=== PATIENT | female | born 1960 | race Hispanic/Latino ===

== ENCOUNTER 2019-08-06 07:01 | Emergency (ER) | payer BC ==
--- OUTSIDE RECORDS SUMMARY | 2019-08-06 07:03 | XMS REPORT ---
:1960 Author Organization e[employer] Care Team Providers Name Role Phone Frazier, Na Provider Role Unavailable Allergies No Known Allergies Problems Problem Type Condition Code Onset Dates Condition Status Problem Pure hypercholesterolemia E78.00 Active Problem Hemorrhoids, unspecified hemorrhoid K64.9 Active type Problem Post menopausal syndrome N95.1 Active Problem Hormone replacement therapy Z79.890 Active (postmenopausal) Problem Encounter for gynecological Z01.419 Active examination without abnormal finding Problem Encounter for screening mammogram Z12.31 Active for breast cancer Problem 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
--- NOTE | 2019-08-06 07:51 | RAD REPORT ---
EXAM DESCRIPTION: RAD - Lumbar Spine 3 Views - 08/06/2019 7:44 am CLINICAL HISTORY: Pain, left lower extremity radiculopathy COMPARISON: None. FINDINGS: A three-view lumbar spine examination was performed. Lumbar bodies are normal in height an d alignment. No fracture or acute bony process seen. No disc space narrowing. Minimal spurring change s in the endplates. Mild to moderate facet joint degenerative changes are present most notable at C3- 4. No pars defects identified. IMPRESSION: No fracture or acute finding identifiable. Prominent facet joint degenerative change.
--- NOTE | 2019-08-06 08:15 | ER ---
Nurse's Notes [facility] Name: Lexii Felipe Age: 58 yrs Sex: Female : 1960 Arrival Date: 08/06/2019 Time: 07:04 Bed 5 Private MD: Diagnosis: Radiculopathy, lumbar region;Pain in left hip Presentation: 08/06 07:12 Presenting complaint: Patient states: c/o pain from left lower back/left hip down left iw leg X 1 week, fell a month ago but no other injury. Transition of care: patient was not received from another setting of care. Onset of symptoms was July 28, 2019. Risk Assessment: Do you want to hurt yourself or someone else? Patient reports no desire to harm self or others. Initial Sepsis Screen: Does the patient meet any 2 criteria? No. Patient's initial sepsis screen is negative. Does the patient have a suspected source of infection? No. Patient's initial sepsis screen is negative. Care prior to arrival: None. 07:12 Method Of Arrival: Wheelchair iw 07:12 Acuity: [place]IX[place] 4 iw Historical: - Allergies: 07:14 PENICILLINS; iw - Home Meds: 07:14 Cymbalta oral oral [Active]; iw - PMHx: 07:14 Hyperlipidemia; iw - PSHx: 07:14 Cholecystectomy; Hysterectomy; iw - Immunization history:: Adult Immunizations not up to date. - Social history:: Smoking status: Patient/guardian denies using tobacco. - Ebola Screening: : Patient negative for fever greater than or equal to 101.5 degrees Fahrenheit, and additional compatible Ebola Virus Disease symptoms Patient denies exposure to infectious person Patient denies travel to an Ebola-affected area in the 21 days before illness onset No symptoms or risks identified at this time. Screenin:20 Abuse screen: Denies threats or abuse. Denies injuries from another. Nutritional jl7 screening: No deficits noted. Tuberculosis screening: No symptoms or risk factors identified. Fall Risk Gait- Weak (10 pts.). Total Marquez Fall Scale indicates No Risk (0-24 pts). Assessment: 07:20 General: Appears in no apparent distress. uncomfortable, Behavior is calm, cooperative, jl7 appropriate for age. Pain: Complains of pain in left hip Pain currently is 10 out of 10 on a pain scale. Neuro: Level of Consciousness is awake, alert, obeys commands, Oriented to person, place, time, situation. Cardiovascular: Patient's skin is warm and dry. Respiratory: Airway is patent Respiratory effort is even, unlabored, Respiratory pattern is regular, symmetrical. Derm: Skin is pink, warm \T\ dry. Musculoskeletal: Range of motion: limited in left hip. Vital Signs: 07:14 BP 140 / 94; Pulse 72; Resp 16; Temp 97.4; Pulse Ox 98% on R/A; Weight 95.25 kg; Height iw 5 ft. 2 in. (157.48 cm); Pain 10/10; 07:14 Body Mass Index 38.41 (95.25 kg, 157.48 cm) iw ED Course: 07:04 Patient arrived in ED. cl3 07:13 Triage completed. iw 07:14 Arm band placed on. iw 07:18 [facility] snw 07:18 Dwayne Barrios MD is Attending Physician. snw 07:20 Patient has correct armband on for positive identification. Placed in gown. Bed in low jl7 position. Call light in reach. Side rails up X 1. 07:39 Lumbar Spine (3 Views) XRAY In Process Unspecified. EDMS 07:49 Govind Santoyo, FREDA is Primary Nurse. jl7 08:32 No provider procedures requiring assistance completed. Patient did not have IV access jl7 during this emergency room visit. Administered Medications: 08:20 Drug: TORadol 30 mg Route: IM; Site: right deltoid; jl7 08:32 Follow up: Response: No adverse reaction jl7 Outcome: 08:14 Discharge ordered by . snw 08:32 Discharged to home ambulatory. jl7 08:32 Condition: stable 08:32 Discharge instructions given to patient, family, Instructed on discharge instructions, follow up and referral plans. medication usage, Demonstrated understanding of instructions, follow-up care, medications, Prescriptions given X 2. 08:33 Patient left the ED. jl7 Signatures: Dispatcher [employer] EDMS Donya Hopper FNP-C [employer] Aliyah Duque RN RN iw Govind Santoyo RN RN jl7 Abi Bower cl3
--- NOTE | 2019-08-06 08:15 | EDPHYS ---
Physician Documentation [facility] Name: Lexii Felipe Age: 58 yrs Sex: Female : 1960 Arrival Date: 08/06/2019 Time: 07:04 Bed 5 Private MD: Dwayne Reyes HPI: 08/06 07:44 This 58 yrs old Female presents to ER via Wheelchair with complaints of Hip snw Pain. 07:44 The patient or guardian reports pain. Pt states her right lateral calf was tender a few snw months ago, one month ago pt tripped carrying a box and fell to left breast. For one week pt has experienced pain to left lateral thigh.. The complaints affect the left hip and lateral aspect of left thigh. Onset: The symptoms/episode began/occurred gradually, 1 week(s) ago, and became persistent. Associated signs and symptoms: Loss of consciousness: the patient experienced no loss of consciousness. Severity of symptoms: At their worst the symptoms were moderate. It is unknown whether or not the patient has had similar symptoms in the past. It is unknown whether or not the patient has recently seen a physician, Sees Dr. Frazier. Historical: - Allergies: 07:14 PENICILLINS; iw - Home Meds: 07:14 Cymbalta oral oral [Active]; iw - PMHx: 07:14 Hyperlipidemia; iw - PSHx: 07:14 Cholecystectomy; Hysterectomy; iw - Immunization history:: Adult Immunizations not up to date. - Social history:: Smoking status: Patient/guardian denies using tobacco. - Ebola Screening: : Patient negative for fever greater than or equal to 101.5 degrees Fahrenheit, and additional compatible Ebola Virus Disease symptoms Patient denies exposure to infectious person Patient denies travel to an Ebola-affected area in the 21 days before illness onset No symptoms or risks identified at this time. ROS: 07:43 Constitutional: Negative for fever, chills, and weight loss, Eyes: Negative for injury, snw pain, redness, and discharge, ENT: Negative for injury, pain, and discharge, Neck: Negative for injury, pain, and swelling, Cardiovascular: Negative for chest pain, palpitations, and edema, Respiratory: Negative for shortness of breath, cough, wheezing, and pleuritic chest pain, Abdomen/GI: Negative for abdominal pain, nausea, vomiting, diarrhea, and constipation, Back: Negative for injury and pain, : Negative for injury, bleeding, discharge, and swelling, Skin: Negative for injury, rash, and discoloration, Neuro: Negative for headache, weakness, numbness, tingling, and seizure. 07:43 MS/extremity: Positive for pain, of the left inner thigh and medial aspect of left thigh. Exam: 07:42 Constitutional: This is a well developed, well nourished patient who is awake, alert, snw and in no acute distress. Head/Face: Normocephalic, atraumatic. Eyes: Pupils equal round and reactive to light, extra-ocular motions intact. Lids and lashes normal. Conjunctiva and sclera are non-icteric and not injected. Cornea within normal limits. Periorbital areas with no swelling, redness, or edema. ENT: Nares patent. No nasal discharge, no septal abnormalities noted. Tympanic membranes are normal and external auditory canals are clear. Oropharynx with no redness, swelling, or masses, exudates, or evidence of obstruction, uvula midline. Mucous membranes moist. Neck: Trachea midline, no thyromegaly or masses palpated, and no cervical lymphadenopathy. Supple, full range of motion without nuchal rigidity, or vertebral point tenderness. No Meningismus. Chest/axilla: Normal chest wall appearance and motion. Nontender with no deformity. No lesions are appreciated. Cardiovascular: Regular rate and rhythm with a normal S1 and S2. No gallops, murmurs, or rubs. Normal PMI, no JVD. No pulse deficits. Respiratory: Lungs have equal breath sounds bilaterally, clear to auscultation and percussion. No rales, rhonchi or wheezes noted. No increased work of breathing, no retractions or nasal flaring. Abdomen/GI: Soft, non-tender, with normal bowel sounds. No distension or tympany. No guarding or rebound. No evidence of tenderness throughout. Back: No spinal tenderness. No costovertebral tenderness. Full range of motion. Skin: Warm, dry with normal turgor. Normal color with no rashes, no lesions, and no evidence of cellulitis. MS/ Extremity: Pulses equal, no cyanosis. Neurovascular intact. Full, normal range of motion. Neuro: Awake and alert, GCS 15, oriented to person, place, time, and situation. Cranial nerves II-XII grossly intact. Motor strength 5/5 in all extremities. Sensory grossly intact. Cerebellar exam normal. Normal gait. Vital Signs: 07:14 BP 140 / 94; Pulse 72; Resp 16; Temp 97.4; Pulse Ox 98% on R/A; Weight 95.25 kg; Height iw 5 ft. 2 in. (157.48 cm); Pain 10/10; 07:14 Body Mass Index 38.41 (95.25 kg, 157.48 cm) iw MDM: 07:19 Patient medically screened. snw 08:15 Data reviewed: vital signs, nurses notes. Data interpreted: Pulse oximetry: on room air snw is 98 %. Interpretation: normal. Counseling: I had a detailed discussion with the patient and/or guardian regarding: the historical points, exam findings, and any diagnostic results supporting the discharge/admit diagnosis, the presence of at least one elevated blood pressure reading (>120/80) during this emergency department visit, radiology results, the need for outpatient follow up, to return to the emergency department if symptoms worsen or persist or if there are any questions or concerns that arise at home. Special discussion: I have referred the patient to see his PCP for further evaluation of high blood pressure. Based on the history and exam findings, there is no indication for further emergent testing or inpatient evaluation. I discussed with the patient/guardian the need to see the orthopedic surgeon for further evaluation of the symptoms. I discussed with the patient/guardian the need to see the primary care provider for further evaluation of the symptoms. 08/06 07:19 Order name: Lumbar Spine (3 Views) XRAY snw Administered Medications: 08:20 Drug: TORadol 30 mg Route: IM; Site: right deltoid; jl7 08:32 Follow up: Response: No adverse reaction jl7 Disposition: 17:11 Co-signature as Attending Physician, Dwayne Barrios MD I agree with the assessment and donny plan of care. Disposition: 08/06/19 08:14 Discharged to Home. Impression: Radiculopathy, lumbar region, Pain in left hip. - Condition is Stable. - Discharge Instructions: Back Pain, Adult, Lumbosacral Radiculopathy, Musculoskeletal Pain, Hip Pain, Heat Therapy. - Prescriptions for Diclofenac Sodium 75 mg Oral Tablet Sustained Release - take 1 tablet by ORAL route 2 times per day; 30 tablet. orphenadrine citrate 100 mg Oral Tablet Sustained Release - take 1 tablet by ORAL route 2 times per day As needed; 20 tablet. - Work release form, Medication Reconciliation Form, Thank You Letter, Antibiotic Education, Prescription Opioid Use form. - Follow up: Private Physician; When: 1 - 2 days; Reason: Recheck today's complaints, Continuance of care, Re-evaluation by your physician. Follow up: Emergency Department; When: As needed; Reason: Worsening of condition. Signatures: Dispatcher [employer] EDDwayne Hudson, Donya Figueroa MD, cha, [employer] Aliyah Duque, FREDA RN iw Govind Santoyo RN RN jl7 Corrections: (The following items were deleted from the chart) 08:33 08:14 08/06/2019 08:14 Discharged to Home. Impression: Radiculopathy, lumbar region; jl7 Pain in left hip. Condition is Stable. Forms are Medication Reconciliation Form, Thank You Letter, Antibiotic Education, Prescription Opioid Use. Follow up: Private Physician; When: 1 - 2 days; Reason: Recheck today's complaints, Continuance of care, Re-evaluation by your physician. Follow up: Emergency Department; When: As needed; Reason: Worsening of condition. snw
[2019-08-06] MEDS ORDERED: KETOROLAC 30 MG/ML INJ ONE (08:22)
[2019-08-06 08:38] VITALS: BP 140/94; TEMP 97.4; O2SAT 98
== END 2019-08-06 08:33 | disposition home or self-care (01) ==
LOC: ER 07:01
DX: M54.16 Radiculopathy, lumbar region (principal); W01.198A Fall on same level from slipping, tripping and stumbling with subsequent striking against other object, initial encounter; Y93.89 Activity, other specified; Y92.9 Unspecified place or not applicable; E78.5 Hyperlipidemia, unspecified; Z88.0 Allergy status to penicillin
CPT/HCPCS: 72100; 96372; 99283